=== PATIENT | male | born 1970 | race Caucasian/White ===

== ENCOUNTER 2018-12-06 11:31 | Emergency (ER) | payer OTHER ==
[~2018-12-06] VITALS: Ht 182.9 cm; Wt 123.5 kg
[~2018-12-06 11:31] MED LIST: CYCL10TA7 PO; NAPR-985 PO
[2018-12-06 11:38] VITALS: PULSE 102; Ht 182.9 cm; Wt 123.5 kg
[2018-12-06] MEDS ORDERED: KETOROLAC 30 MG INJ IM STA (13:15)
[2018-12-06] MEDS ORDERED: DEXAMETHASONE 10 MG/ML 1 ML INJ IM ONE (15:00)
[2018-12-06 15:23] VITALS: BP 132/88; RESP 16
== END 2018-12-06 15:25 | disposition home or self-care (01) ==
LOC: FTE 11:31
DX: M54.42 Lumbago with sciatica, left side (principal)
CPT/HCPCS: 76775; 81001; J1100; J1885; 96372